=== PATIENT | female | born 1980 | race Caucasian/White ===

== ENCOUNTER 2022-04-28 16:19 | Outpatient (CLI) | payer BC, SELFPAY ==
[2022-04-28 21:34] LABS: Hepatitis B Surface Antigen* Negative (Negative)
[2022-04-28 21:42] LABS: HIV 1/2/P24 Combo Screen* Negative (Negative)
[2022-04-28 21:52] LABS: Hepatitis C Virus Antibody* Negative (Negative)
[2022-04-28 22:32] LABS: Chlamydia DNA Amplified* NOT DETECTED (No Detected); GC DNA Amplified* NOT DETECTED (No Detected)
[2022-05-01 02:47] LABS: Rapid Plasma Reagin (RPR) Non Reactive (Non Reactive)
[2022-05-01 05:30] LABS: Varicella-Zoster Virus Ab, IgG 888.9 IV
[2022-05-01 05:35] LABS: Rubella Antibody IgG 55.9 IU/mL
== END 2022-04-28 16:20 | disposition home or self-care (01) ==
PROVIDERS: Visit Provider Registered Nurse
DX: Z34.91 Encounter for supervision of normal pregnancy, unspecified, first trimester (principal); Z3A.09 9 weeks gestation of pregnancy
CPT/HCPCS: 76801; 86592; 86703; 86762; 86787; 86803; 86850; 86900; 86901; 87086; 87340; 87491; 87591

== ENCOUNTER 2022-06-16 16:02 | Outpatient (CLI) | payer BC, SELFPAY ==
[2022-06-19 09:31] LABS: Dating Ultrasound; Family Hx Neural Tube Defect No; Insulin Req Maternal Diabetes No; Maternal Age At Delivery 41.8 yr; Maternal Race Nonblack; Maternal Screen Interpretation Screen Neg; MoM for AFP 1.34; Number of Fetuses Singleton; Patient's AFP 39 ng/mL; Smoking No
== END 2022-06-16 16:03 | disposition home or self-care (01) ==
PROVIDERS: PCP Registered Nurse; Visit Provider Obstetrics & Gynecology
DX: Z34.92 Encounter for supervision of normal pregnancy, unspecified, second trimester (principal); Z3A.16 16 weeks gestation of pregnancy
CPT/HCPCS: 81511

== ENCOUNTER 2022-07-08 13:12 | Outpatient (CLI) | payer BC, SELFPAY | END 2022-07-08 13:13 | disposition home or self-care (01) | LOC: US 13:13 | PROVIDERS: PCP Registered Nurse; Visit Provider Pediatrics Neonatal-Perinatal Medicine | DX: O09.522 Supervision of elderly multigravida, second trimester (principal); Z3A.19 19 weeks gestation of pregnancy | CPT/HCPCS: 76811 ==

== ENCOUNTER 2022-09-07 14:31 | Outpatient (CLI) | payer BC, SELFPAY | END 2022-09-07 14:32 | disposition home or self-care (01) | LOC: NFLDREF 09-10 10:54 | PROVIDERS: PCP Registered Nurse; Referring Provider Registered Nurse; Visit Provider Obstetrics & Gynecology | DX: Z34.93 Encounter for supervision of normal pregnancy, unspecified, third trimester (principal); Z3A.28 28 weeks gestation of pregnancy | CPT/HCPCS: 86592 ==

== ENCOUNTER 2022-11-02 15:30 | Outpatient (CLI) | payer BC, SELFPAY | END 2022-11-02 15:31 | disposition home or self-care (01) | LOC: NFLDREF 11-03 18:08 | PROVIDERS: PCP Registered Nurse; Referring Provider Registered Nurse; Visit Provider Obstetrics & Gynecology | DX: Z34.93 Encounter for supervision of normal pregnancy, unspecified, third trimester (principal); Z3A.36 36 weeks gestation of pregnancy | CPT/HCPCS: 87081; 87653 ==

== ENCOUNTER 2022-11-08 17:51 | Outpatient (CLI) | payer BC, SELFPAY ==
[2022-11-08] VITALS (20 sets, daily range): BP systolic 127; BP diastolic 82; PULSE 73–86; RESP 18; TEMP 36.6; O2SAT 99–100
--- NOTE | 2022-11-08 17:52 | CRLHL7_ITS ---
For Patients: As a result of the Century Cures Act, medical imaging exams and procedure reports are released immediately into your electronic medical record. You may view this report before your referring provider. If you have questions, please contact your health care provider. INDICATION: Decreased movement. Estimated gestational age 37 weeks 1 day. FINDINGS: A biophysical profile was performed. body movements: 2/2. tone: 2/2. Respiratory activity: 2/2. Amniotic fluid: 2/2. Biophysical profile 12/22 Placenta: Fundal. heart rate: 122 beats per minute. Amniotic fluid: Single deepest pocket 4.4 cm. Presentation: Breech. Impression: Biophysical profile 8 . Dictated by Ashwin Huggins MD @ 11/08/2022 8:37:01 PM (Electronically Signed)
--- NOTE | 2022-11-08 20:08 | PC.OBNST ---
NST Note NST Note Start: 11/08/22 17:51 Freq: ONCE Status: Complete Protocol: Document 11/08/22 20:05 ADAMARIS (Rec: 11/08/22 20:07 ADAMARIS [id number]) NST Note 4 Para (# of births) 3 EDC 11/28/22 Gestational Age In Weeks & Days 37 Weeks & 1 Days Patient Presented with Complaint(s) of Decreased movement Reactive Yes Appropriate for Gestational Age Yes ADRYAN Sebastian RNC Date 11/08/22 Reactive Yes Appropriate for Gestational Age Yes ADRYAN Jauregui RN Date 11/08/22 OB NST charge Yes Complete NST Note via Write Note Yes The provider's electronic signature indicates the NST is reactive/appropriate for gestational age. *Note to provider: If an addendum is required, open the patient's chart and click on the note under the Nurse/Allied Health tab.
== END 2022-11-08 20:05 | disposition home or self-care (01) ==
LOC: OB OUT 17:51 → OB 17:52
PROVIDERS: PCP Registered Nurse; Visit Provider Obstetrics & Gynecology
DX: O36.8130 Decreased fetal movements, third trimester, not applicable or unspecified (principal); Z3A.37 37 weeks gestation of pregnancy
CPT/HCPCS: 59025; 76819; 99213

== ENCOUNTER 2022-11-18 16:38 | Outpatient (CLI) | payer BC, SELFPAY ==
[2022-11-18 16:56] VITALS: BP 136/84; PULSE 86; RESP 18; TEMP 36.7
[2022-11-18 17:06] VITALS: BP 136/85; PULSE 82
[2022-11-18 17:16] VITALS: BP 133/85; PULSE 82
--- NOTE | 2022-11-18 17:57 | PC.OBNST ---
NST Note NST Note Start: 11/18/22 16:46 Freq: ONCE Status: Active Protocol: Document 11/18/22 17:54 AUREA (Rec: 11/18/22 17:56 AUREA [id number]) NST Note 4 Para (# of births) 3 EDC 11/28/22 Gestational Age In Weeks & Days 38 Weeks & 4 Days High Risk Factors Advanced Maternal Age Patient Presented with Complaint(s) of Headache Other Complaints Headache with vision blurred to left side, comes and goes. Reactive Yes Appropriate for Gestational Age Yes ADRYAN Saenz RN Date 11/18/22 Reactive Yes Appropriate for Gestational Age Yes ADRYAN Emerson Date 11/18/22 OB NST charge Yes Complete NST Note via Write Note Yes The provider's electronic signature indicates the NST is reactive/appropriate for gestational age. *Note to provider: If an addendum is required, open the patient's chart and click on the note under the Nurse/Allied Health tab.
== END 2022-11-18 17:35 | disposition home or self-care (01) ==
LOC: OB CLI 16:40 → OB 17:03
PROVIDERS: PCP Registered Nurse; Visit Provider Obstetrics & Gynecology
DX: O09.523 Supervision of elderly multigravida, third trimester (principal); Z3A.38 38 weeks gestation of pregnancy
CPT/HCPCS: 59025; 99213

== ENCOUNTER 2022-11-22 20:24 | Outpatient (CLI) | payer BC, SELFPAY ==
[2022-11-22 20:33] VITALS: BP 131/85; PULSE 81
[2022-11-22 20:34] VITALS: PULSE 82; O2SAT 98
[2022-11-22 20:39] VITALS: PULSE 75; O2SAT 98
[2022-11-22 20:44] VITALS: PULSE 74; O2SAT 97
[2022-11-22 20:49] VITALS: PULSE 78; O2SAT 98
--- NOTE | 2022-12-02 19:37 | PC.OBNST ---
NST Note NST Note Start: 12/02/22 19:35 Freq: Status: Active Protocol: Document 12/02/22 19:36 MATEO (Rec: 12/02/22 19:37 MATEO [id number]) NST Note 4 Para (# of births) 3 EDC 11/25/22 Gestational Age In Weeks & Days 41 Weeks & 0 Days Patient Presented with Complaint(s) of Contractions/cramping Reactive Yes Appropriate for Gestational Age Yes RN Erasmo RN Date 11/22/22 Reactive Yes Appropriate for Gestational Age Yes ADRYAN Corona RN Date 11/22/22 OB NST charge Yes Complete NST Note via Write Note Yes The provider's electronic signature indicates the NST is reactive/appropriate for gestational age. *Note to provider: If an addendum is required, open the patient's chart and click on the note under the Nurse/Allied Health tab.
--- NOTE | 2022-12-15 12:06 | PC.OBNST ---
NST Note NST Note Start: 12/02/22 19:35 Freq: Status: Active Protocol: Document 11/22/22 21:00 MATEO (Rec: 12/02/22 19:37 MATEO [id number]) NST Note 4 Para (# of births) 3 EDC 11/25/22 Gestational Age In Weeks & Days 41 Weeks & 0 Days Patient Presented with Complaint(s) of Contractions/cramping Reactive Yes Appropriate for Gestational Age Yes RN Erasmo RN Date 11/22/22 Reactive Yes Appropriate for Gestational Age Yes ADRYAN Corona RN Date 11/22/22 OB NST charge Yes Complete NST Note via Write Note Yes The provider's electronic signature indicates the NST is reactive/appropriate for gestational age. *Note to provider: If an addendum is required, open the patient's chart and click on the note under the Nurse/Allied Health tab.
== END 2022-11-22 20:58 | disposition home or self-care (01) ==
LOC: OB OUT 20:24 → OB 20:24
PROVIDERS: PCP Registered Nurse; Visit Provider Obstetrics & Gynecology
DX: O09.523 Supervision of elderly multigravida, third trimester (principal); Z3A.38 38 weeks gestation of pregnancy
CPT/HCPCS: 59025; 99213

== ENCOUNTER 2022-11-23 19:14 | Inpatient (IN) | payer BC, SELFPAY ==
[2022-11-23] VITALS (22 sets, daily range): BP systolic 127–147; BP diastolic 72–91; PULSE 75–105; RESP 18; TEMP 36.5–36.8; O2SAT 92–100; BMI 37.6
[2022-11-23 15:58] LABS: Hematocrit 35.6 % (33.0-51.0); Hemoglobin* 11.9 gm/dL (12.0-16.0); Mean Corpuscular HGB Conc 33 gm/dL (32-36); Mean Corpuscular Hemoglobin 30 pg (26-34); Mean Corpuscular Volume 90 fL (80-100); Platelet Count* 254 K/uL (140-440); Red Blood Count 3.95 m/uL (4.00-5.20); White Blood Count* 10.73 K/uL (4.50-11.00)
[2022-11-23 16:00] LABS: Slide Review Reflex No
[2022-11-23 16:17] LABS: Alanine Aminotransferase* 17 U/L (4-35); Aspartate Amino Transferase* 22 U/L (12-35); Creatinine* 0.5 mg/dL (0.5-1.5); Estimated Glomerular Filt Rate 121 ml/min
[2022-11-23 16:18] LABS: Blood Urea Nitrogen* 9 mg/dL (5-24)
[2022-11-23 16:18] LABS: Total Protein Urine 14 mg/dL
[2022-11-23 16:19] LABS: Creatinine Urine 34.1 mg/dL
--- NOTE | 2022-11-23 17:14 | P.OBLDTN_ITS ---
OB - Triage/Final Diagnosis Visit Information Time Seen by Provider: 17:14 Date Seen: 11/23/22 Date of evaluation: 11/23/22 Narrative: The patient is a 42 year old 4 para 3003 at 39 2/7 weeks gestation by ultrasound, who presents for BP monitoring after elevated BP noted in clinic. Reason for evaluation: other Evaluation Cervical dilation (cm): 3 Cervical effacement (%): 60 Laboratory results: Laboratory Tests 11/23/22 11/23/22 Range/Units 15:51 15:40 WBC 10.73 (4.50-11.00) K/uL RBC 3.95 L (4.00-5.20) m/uL Hgb 11.9 L (12.0-16.0) gm/dL Hct 35.6 (33.0-51.0) % MCV 90 (80-100) fL MCH 30 (26-34) pg MCHC 33 (32-36) gm/dL Plt Count 254 (140-440) K/uL BUN 9 (5-24) mg/dL Creatinine 0.5 (0.5-1.5) mg/dL Estimated GFR 121 ml/min AST 22 (12-35) U/L ALT 17 (4-35) U/L Urine Creatinine 34.1 mg/dL Protein/Creatinin Ratio 0.40 H (0-0.19) Urine Total Protein 14 mg/dL Vital signs: Vital Signs - 24 hr 11/23/22 15:38 11/23/22 15:53 11/23/22 16:08 Pulse Rate 88 75 76 Blood Pressure 133/80 127/74 133/78 11/23/22 16:23 11/23/22 16:39 Pulse Rate 78 77 Blood Pressure 133/81 142/82 H Fetus (Single) Heart Rate Baseline: 120 Equipment Maintenance Superintendent Variability: Moderate (6-25) Monitor Accelerations: Present Monitor Decelerations: None Station: -2 (BBOW) Final Diagnosis (1) Pre-eclampsia in third trimester: Status: Acute
--- NOTE | 2022-11-23 18:53 | P.LDBA_ITS ---
Subjective History of Present Illness Time Seen by Provider: 18:53 Date Seen: 11/23/22 Narrative: Patient is being admitted to Labor and Delivery for induction of labor secondary to preeclampsia without severe features. She is a 42 year old at 39 2/7 weeks gestation. Her full history and physical was dictated by Dr. Lindsay on 11/12/2022. Please see this for details. She had been seen in clinic today for routine visit, and was found to have an elevated blood pressure. She was sent to the center for further monitoring. She has now had 2 elevated blood pressures in the 140s/80-90s more than 4 hours apart. Serologic labs were normal, but urine protein/creatinine ratio was elevated at 0.4. G4, P3003 : Aubrey. Children: Delta Gasca Devyn. Baby: Girl! 1. Unplanned . Kids are 17, 15, and 12 y.o. Excited about . 2. AMA * Genetic screening: [id number]: no increased risk for aneuploidy. Female. * Level 2 ultrasound 07/08/2022: Breech, 3 vessel cord, post placenta w/o previa, SDP: 5.3cm. Single intracardiac echogenic focus: nothing more to do as the patient had a normal Maternity 21. EFW: 48%. * Growth ultrasound between 32 - 36 weeks: EFW 66% * Weekly NSTs beginning at 36 weeks * Recommend delivery between 39 - 40 weeks 3. Obesity. BMI 32.6 * HgbA1C: 5.2% * Daily baby aspirin beginning at 12 weeks to reduce risk of preeclampsia * 1hr GTT 28wks: 117 4. Family history of cognitive impairment in younger sister. 5. Possible hemorrhage following delivery in 2009 6. H/o PCOS and irregular cycles 7. H/o undiagnosed anxiety and depression as teenager. PHQ 8, COLLEEN 12. Not interested in discussing management options at this time. * COLLEEN-7: 11 at 32wks. Feels it is situational. Declines interventions. 8. Transverse, back up at 34 weeks. Vertex by MAUGE Castro and bedside USN at 36wks (direct OP). * 37w2d 11/09/2022: Back down transverse: head on maternal R. * Plan: Spinning babies website positions (worked at 36 weeks to turn baby vtx). If not vertex at 38wks then schedule ECV. If ECV not successful then primary LTCS at 39 weeks. Planning IOL at 39wks (AMA and h/o short labors): if not vtx at IOL the patient would like to do an ECV followed by IOL. Wants avoid . * Vertex presentation confirmed by bedside ultrasound on 11/16/2022. Flu: 04/28/2022. TDap: 09/21/22. COVID: Completed, not boosted. Recommended booster. OB - Problem Based A/P Additional Plan (1) Pre-eclampsia in third trimester: Status: Acute Delivery/Labor/Induction Plan Plan: induction Induction method: AROM OB Result Labs Blood Type: A (+) positive Rubella: immune RPR/VDLR: nonreactive GBS Status: negative HBsAG: negative OB Exam Physical Exam Vital signs: Pulse BP 105 H 147/87 H 11/23/22 18:41 11/23/22 18:41 Detailed Labor and Delivery Exam Patient Gravid: Yes Dilation (cm): 3 Effacement (%): 60 Cervix position: mid Consistency: soft Contraction intensity: Mild Fetus (Single) Station: -2 Amniotic Membrane Status: intact Heart Rate Baseline: 125 Monitor Accelerations: Present Monitor Decelerations: None Correction Variability: Moderate (6-25)
--- NOTE | 2022-11-23 19:34 | P.OBPN_ITS ---
Subjective Time Seen by Provider: 19:35 Date Seen: 11/23/22 Narrative: Patient comfortable in labor room. Kody since last cervical exam. Objective Vital Signs: Last Vital Signs Pulse 93 11/23/22 18:57 BP 132/91 H 11/23/22 18:57 Pelvic Exam Dilation (cm): 4 Effacement (%): 70 Station: -2 Contractions Monitor mode: External Contraction pattern: Regular Contraction intensity: Mild Assessment Station: -2 Amniotic Membrane Status: AROM (clear fluid) Status: Category l Heart Rate Baseline: 125 Client Service Executive Variability: Moderate (6-25) Monitor Accelerations: Present Monitor Decelerations: None Plan Plan: Amniotomy performed. Continue to monitor for labor. Consider pitocin augmentation if needed. Pain control options reviewed. Continue close monitoring of BP.
[2022-11-23] MEDS: LACTATED RINGERS 1000 ML 1,000 ML IV (20:30)
--- NOTE | 2022-11-23 21:36 | SUR.ANES ---
Pt informed of risk, benefits, alternatives for labor epidural. Sterile prep and drape. 1%lido localization to skin. Pt had a hard time holding still. After two attempts pt.asked to stop procedure. No complications. At this time pt. wishes to use Nirtrous.
[2022-11-24] VITALS (58 sets, daily range): BP systolic 103–180; BP diastolic 53–95; PULSE 66–121; RESP 18–20; TEMP 36.5–36.8; O2SAT 78–100
[2022-11-24] MEDS: fentaNYL 100 MCG/2 ML inj IVP (01:25)
[2022-11-24] MEDS: LACTATED RINGERS 1000 ML 1,000 ML IV (01:49)
--- NOTE | 2022-11-24 02:42 | PM.ANBPRC ---
[facility] Medical History (Updated 11/23/22 @ 18:57 by Sintia Banegas MD) malpresentation ?O32.9XX0 - Maternal care for malpresentation of fetus, unspecified, not applicable or unspecified (ICD-10) History of hysterosalpingogram ?Z98.890 - Other specified postprocedural states (ICD-10) Depression ?F32.A - Depression, unspecified (ICD-10) Surgical History (Updated 04/30/22 @ 23:08 by Niya Mckeon CNP) History of colposcopy ?Z98.890 - Other specified postprocedural states (ICD-10) Family History (Updated 04/30/22 @ 23:07 by Niya Mckeon CNP) Sister Cognitive developmental delay Paternal Grandmother Breast cancer Stroke Father Diabetes Heart disease Maternal Grandfather Heart disease Maternal Grandmother Lung disease Mother Scoliosis Social History What is your current living situation?: I presently have a place to live Problems where you live: no known problems In the past 12 months, utilities in danger of being shut off: no In the past 12 mos, have been you worried that your food would run out before you had money to buy more?: never true In the past 12 mos, the food you bought just didn't last and you didn't have money to buy more?: never true Smoking Status: Former smoker How often does anyone, including family, friends and others, physically hurt you: never How often does anyone, including family, friends and others, insult or talk down to you: never How often does anyone, including family, friends and others, threaten you with harm: never How often does anyone, including family, friends and others, scream or curse at you: never Little interest or pleasure in doing things: several days Feeling down, depressed, or hopeless: several days Meds Home Medications and Allergies Home Medications Medication Instructions Recorded Confirmed Type docosahexaenoic acid 200 mg 200 mg PO DAILY 04/28/22 11/23/22 History capsule ( DHA) aspirin 81 mg chewable tablet 81 mg PO QDAY 05/27/22 11/23/22 History docusate sodium 100 mg capsule 100 mg PO BID 05/27/22 11/23/22 History (Colace) calcium carbonate 500 mg calcium 1,000 mg PO QDAY PRN 07/08/22 11/23/22 History (1,250 mg) chewable tablet magnesium oxide 400 mg (241.3 mg 400 mg PO QDAY 08/06/22 11/23/22 History magnesium) tablet Allergies Allergy/AdvReac Type Severity Reaction Status Date / Time No Known Drug Allergies Allergy Verified 11/23/22 14:27 Results Labs Labs: Laboratory Results - last 24 hr 11/23/22 11/23/22 15:40 15:51 WBC 10.73 RBC 3.95 L Hgb 11.9 L Hct 35.6 MCV 90 MCH 30 MCHC 33 Plt Count 254 BUN 9 Creatinine 0.5 Estimated GFR 121 AST 22 ALT 17 Urine Creatinine 34.1 Protein/Creatinin Ratio 0.40 H Urine Total Protein 14 Blood Type A Positive Antibody Screen NEGATIVE Vital Signs Vital Signs: Last Vital Signs Temp 98 F 11/24/22 01:00 Pulse 95 11/24/22 02:41 Resp 20 11/24/22 01:00 BP 119/56 L 11/24/22 02:41 Pulse Ox 100 11/24/22 02:42 Weight: 102.648 kg Height: 165.1 cm Anesthesia Procedures Intrathecal Patient Location: OB Start Time: 02:25 Stop Time: 02:50 Start Date: 11/24/22 Stop Date: 11/24/22 Reason for Block: procedure for pain Patient Position: sitting Performed By: David Perez Preanesthetic Checklist: IV checked, risks and benefits discussed and anesthesia consent Prep: chlorhexidine gluconate Monitoring: blood pressure monitoring, cardiac specialist, continuous pulse oximetry and heart rate Approach: midline Vertebral Space: thoracic (1-12) Needle Type: Lena Injection Technique: single-shot Needle gauge: 24 Needle Length (cm): 10 cm
[2022-11-24] MEDS: fentaNYL 100 MCG/2 ML inj 25 MCG INTRATHECA (02:48)
[2022-11-24] MEDS: PHENYLEPHRINE 100 MCG/ML SYRINGE IVP (02:52)
[2022-11-24] MEDS: OXYTOCIN 30 unit/500 ML in NS 30 UNIT/500 ML BAG 300 UNIT IVPB (04:07)
[2022-11-24] MEDS: LIDOCAINE 1 % PF 30 ML INJECTION (04:30)
--- NOTE | 2022-11-24 05:34 | W.PM.OBVAGDE ---
OB Procedure Vag Delivery Mother Details Mother Details: The patient is a 42 year-old, 4, Para 3, admitted on 11/23/22 at 39 2/7 weeks gestation for induction of labor secondary to pre-eclampsia without severe features. Para: 3 Weeks Gestation: 39.2 Admission Date: 11/23/22 Additional Details Amniotic Membrane Status: AROM Amniotic Membrane Rupture Date: 11/23/22 Amniotic Membrane Rupture Time: 19:29 Amniotic Membrane Fluid Description: Clear Analgesia/Anesthesia Type: Intrathecal, Fentanyl (5) and Nitrous Oxide (0) Waterbirth: No Pitcoin: No Intrapartal Events: Labor Induction Induction Method: AROM Labor Onset: 21:00 Complete: 03:35 Pushin:52 Heart: heart tones during second stage were category 1. Delivery Details Delivery Date: 11/24/22 Delivery Time: 04:06 Route of delivery: Gender: Female Infant Viability: Alive; Heart Rate Present Position at Delivery: OA Delivery Details: Delivered over small 1st degree perineal laceration via spontaneous vaginal delivery. was placed on maternal abdomen.? Cord was clamped and cut after a 30-60 second delay. Nose and mouth were bulb suctioned.? weight pending. 1 Minute Interval Total Score: 8 5 Minute Interval Total Score: 9 Additional Details Shoulder Dystocia: No Placenta Delivery Time: 04:10 Placental Delivery Description: Spontaneous Delivery repair: Chromic (1st degree perineal, second degree left labial with avulsion, both repaired with 3-0 chromic) Procedure Done: Global Blood Loss: 200 Laceration: Labial (left) Episiotomy Description: None Blood Loss Measurement Type: QBL Sponge/Need Count Correct: No Cord Vessel Description: 3 Vessels Event Summary Status: Mother and were stable after delivery. Disposition: floor
[2022-11-24] MEDS: IBUPROFEN 600 MG TABLET PO ×3 (06:49→19:35)
[2022-11-24] MEDS: DOCUSATE SODIUM 100 MG CAPSULE PO (09:27)
[2022-11-24] MEDS: ACETAMINOPHEN 500 MG TABLET 1000 MG PO ×2 (09:27→16:31)
[2022-11-25 00:10] VITALS: BP 118/75; PULSE 70; RESP 16; TEMP 36.6; O2SAT 97
[2022-11-25] MEDS: ACETAMINOPHEN 500 MG TABLET 1000 MG PO ×2 (00:22→07:53)
[2022-11-25 03:55] VITALS: BP 130/86; PULSE 69; RESP 16; TEMP 36.4; O2SAT 97
[2022-11-25] MEDS: IBUPROFEN 600 MG TABLET PO ×2 (04:03→11:04)
[2022-11-25 07:23] LABS: Hemoglobin* 11.5 gm/dL (12.0-16.0)
[2022-11-25 07:35] VITALS: BP 127/85; PULSE 61; RESP 16; TEMP 36.4; O2SAT 97
--- NOTE | 2022-11-25 07:50 | PM.OBDSVD1 ---
DS: Providers Provider Time Seen by Provider: 07:50 Date Seen: 11/25/22 Date of admission: 11/23/22 19:14 Primary care physician: Niya Mckeon CNP Admitting Clinician: Sintia Banegas MD Attending Physician on discharge: Sintia Banegas MD Date of Discharge: 11/25/22 DS: Diagnosis Discharge Diagnosis (1) NVD (normal vaginal delivery): Status: Acute (2) Pre-eclampsia in third trimester: Status: Acute (3) Anxiety: Status: Acute (4) PCOS (polycystic ovarian syndrome): Status: Acute Exam Narrative: Exam Narrative: VSS, afebrile GENERAL APPEARANCE: ?normal affect, alert, no distress MOOD: ?appropriate HEENT: normocephalic, neck supple, full ROM CHEST: ?Symmetrical chest wall movement. ?Normal respiratory effort. ?Clear to auscultation HEART: ?regular rate and rhythm ABDOMEN: ?soft, non-tender. Uterine fundus is firm, 1 below Umbilicus, Midline and is appropriate for the stage of recovery. ?Bowel sounds present. PERINEUM: ?mild edema of the perineum, there is a 1st degree and labial laceration that is healing well. EXTREMITIES: ?normal and no edema Const: Vital Signs, click to edit/add: Vital Signs - 24 hr 11/24/22 09:03 11/24/22 13:30 11/24/22 16:47 Temperature 97.9 F 97.7 F 97.9 F Pulse Rate [Blood Pressure Cuff] 66 81 78 Respiratory Rate 18 18 18 Blood Pressure [Le ft Arm] 124/81 128/86 124/78 Pulse Oximetry 96 95 Oxygen Delivery Me thod Room Air Room Air Room Air 11/24/22 20:01 11/25/22 00:10 11/25/22 03:55 Temperature 97.9 F 97.9 F 97.6 F Pulse Rate [Blood Pressure Cuff] 69 70 69 Respiratory Rate 18 16 16 Blood Pressure [Le ft Arm] 127/81 118/75 130/86 Pulse Oximetry 97 97 97 Oxygen Delivery Me thod Room Air Room Air Room Air Documenting provider has reviewed patient's vital signs: yes OB - DS: Summary Hospital Course Hospital Course: Nimco is a 42 y.o. G 4 P 4 who was admitted to L & D for IOL for gestational hypertension. ?She had an uncomplicated NVD The patient feels well. ?The pain is well controlled with current medications. ?She has no new complaints. ?She is breast feeding and reports things are going well.? the patient has done well.? Vitals have been stable.? She has remained afebrile.? Has a good appetite, is tolerating a general diet. ?She is voiding without difficulty.? She is passing gas and has not had a bowel movement.? She is ambulating and denies any dizziness.? Has Small amount of rubra lochia. She is planning partner vasectomy for prevention. Problems: none plan: Discharge home with baby. Follow up in 2 weeks and 6 weeks. , may follow up with if needed Preeclampsia w/o severe features -follow up in 3-5 days fo a blood pressure check Peripartum Data Infant delivery method: Vaginal Laceration description: Periurethral - 1st Degree complications: none [place] Gender: Female Infant Discharge Plan: Home Status at Discharge Functional status at discharge: independent ambulation Overall status at discharge: patient is progressing back to baseline Time Spent with Patient Time attestation: Total time spent providing and/or coordinating discharge services: Time spent: Less than 30 minutes Discharge Plan Discharge Disposition: Home, Self-Care Date of Admission: 11/23/22 19:14 Attending Provider on Discharge: Amy Mckee Primary Care Provider: Niya Mckeon Condition: Stable Anticipated Discharge Date/Time: 11/25/22 14:00 Discharge Medications: New ibuprofen 600 mg Tablet 600 mg PO Q6H PRNQty: 60 0RF Continued DHA 200 mg capsule 200 mg PO DAILY docusate sodium [Colace] 100 mg capsule 100 mg PO BID calcium carbonate 500 mg calcium (1,250 mg) tablet,chewable 1,000 mg PO QDAY PRN magnesium oxide 400 mg (241.3 mg magnesium) tablet 400 mg PO QDAY omeprazole 20 mg capsule,delayed release(DR/EC) 20 mg PO QDAY Qty: 60 0RF Discontinued aspirin 81 mg tablet,chewable 81 mg PO QDAY Discharge Orders: Discharge Order (Routine); Ordered 11/25/22 Ordered By: Amy Mckee Patient Education: OB Over the Counter Medication Information, OB Vaginal/Breast Feeding Additional Instructions: Hx of preeclampsia. Follow up blood pressure check in 3-5 days, can be nurse only visit. Continue to check blood pressures twice a day. Call if 140/90 or higher. Follow up in 2 and 6 weeks Activity Level: Activity as Tolerated Discharge Diet: Regular Follow Up Appointments: Niya Mckeon, VAULT SERVICE MECHANIC [Primary Care Provider] - Forms: [employer] Info Instructions
[2022-11-25] MEDS: DOCUSATE SODIUM 100 MG CAPSULE PO (07:53)
[2022-11-25 11:49] VITALS: BP 123/85; PULSE 61; RESP 16; TEMP 36.4; O2SAT 98
--- NOTE | 2022-11-25 20:23 | PC.OBNST ---
NST Note NST Note Start: 11/23/22 15:34 Freq: ONCE Status: Complete Protocol: Document 11/25/22 20:21 MATEO (Rec: 11/25/22 20:23 MATEO [id number]) NST Note 4 Para (# of births) 3 EDC 11/25/22 Gestational Age In Weeks & Days 40 Weeks & 0 Days Patient Presented with Complaint(s) of Decreased movement Reactive Yes Appropriate for Gestational Age Yes ADRYAN Zimmerman RN Date 11/22/22 Reactive Yes Appropriate for Gestational Age Yes ADRYAN Corona RNC Date 11/22/22 OB NST charge Yes Complete NST Note via Write Note Yes The provider's electronic signature indicates the NST is reactive/appropriate for gestational age. *Note to provider: If an addendum is required, open the patient's chart and click on the note under the Nurse/Allied Health tab.
== END 2022-11-25 13:59 | disposition home or self-care (01) | DRG 560 ==
LOC: OB OUT 19:15 → OB 19:15
PROVIDERS: Obstetrics & Gynecology; Admitting Provider Obstetrics & Gynecology; PCP Registered Nurse; Visit Provider Obstetrics & Gynecology
DX: O14.04 Mild to moderate pre-eclampsia, complicating childbirth (principal); O70.1 Second degree perineal laceration during delivery; O70.0 First degree perineal laceration during delivery; O99.284 Endocrine, nutritional and metabolic diseases complicating childbirth; E28.2 Polycystic ovarian syndrome; O99.344 Other mental disorders complicating childbirth; Z37.0 Single live birth; Z3A.39 39 weeks gestation of pregnancy; F41.9 Anxiety disorder, unspecified
CPT/HCPCS: 01967; 36415; 59025; 82565; 82570; 84156; 84450; 84460; 84520; 85018; 85027; 86850; 86900; 86901; 88307; A9270; J2001; J2371; J3010; J7120

== ENCOUNTER 2023-02-16 09:23 | Outpatient (CLI) | payer BC, SELFPAY | END 2023-02-16 09:24 | disposition home or self-care (01) | LOC: NFLDREF 09:24 | PROVIDERS: Visit Provider Internal Medicine | DX: I10 Essential (primary) hypertension (principal); R03.0 Elevated blood-pressure reading, without diagnosis of hypertension; E66.9 Obesity, unspecified; F53.0 Postpartum depression | CPT/HCPCS: 80053; 80061; 84443 ==

== ENCOUNTER 2024-08-01 08:49 | Outpatient (CLI) | payer BC, SELFPAY | END 2024-08-01 08:50 | disposition home or self-care (01) | PROVIDERS: PCP Internal Medicine; Visit Provider Internal Medicine | DX: I10 Essential (primary) hypertension (principal) | CPT/HCPCS: 80053; 80061 ==